=== PATIENT | male | born 1970 | race Caucasian/White ===

== ENCOUNTER 2024-08-19 13:22 | Inpatient (IN) | payer OTHER, SELFPAY ==
[2024-08-17] VITALS (8 sets, daily range): BP systolic 131–162; BP diastolic 73–96; BMI 36.4
[2024-08-17] MEDS: NSS 1000 IV (12:37)
[2024-08-17] MEDS: VALIUM INJECTION 5 MG IV (12:37)
[2024-08-17 12:53] LABS: % Basophils 0.3 % (0-2); % Eosinophils 0.1 % (0-6); % Lymphocytes 14.3 % (20.5-51.1); % Monocytes 3.8 % (1.7-9.3); % Neutrophils 80.5 % (42.2-75.2); Absolute Immature Granulocytes 0.1 10^3/uL (0-0.05); Absolute Lymphocytes 1.3 10^3/uL (1.2-3.4); Absolute Monocytes 0.3 10^3/uL (0.1-0.6); Absolute Neutrophils 7.2 10^3/uL (1.4-6.5); Hematocrit 36.7 % (39.0-52.0); Hemoglobin 12.7 g/dL (13.0-18.0); Mean Corp Hgb Conc. 34.6 g/dL (33.0-37.0); Mean Corpuscular Hgb 33.3 pg (27.0-31.0); Mean Corpuscular Volume 96.3 fL (80.0-94.0); Mean Platelet Volume 9.9 fL (7.4-10.4); Nucleated Red Blood Cells % 0 % (-); Platelet Count 277 10^3/uL (130-400); Red Blood Cell Count 3.81 10^6/uL (4.70-6.10); Red Cell Dist. Width 13.9 % (11.5-14.5)
[2024-08-17 13:05] LABS: ALT (SGPT) 32 U/L (0-50); AST (SGOT) 40 U/L (17-59); Albumin 4.4 g/dl (3.5-5.0); Alkaline Phosphatase 75 U/L (38-126); Blood Urea Nitrogen 26 mg/dl (9-20); Calcium 9.1 mg/dl (8.4-10.2); Carbon Dioxide 25 mmol/L (22-30); Chloride 107 mmol/L (98-107); Glucose 139 mg/dl (70-99); Sodium 139 mmol/L (135-145); Total Bilirubin 0.6 mg/dl (0.2-1.3); Total Protein 9.4 g/dl (6.3-8.2); eGFR > 60.00
--- NOTE | 2024-08-17 13:50 | ED.GENMED ---
History of Present Illness
General
Chief Complaint: Dizziness
Source: patient
Time Seen by Provider: 08/17/24 12:16
History of Present Illness
History of Present Illness:
53-year-old male presents the emergency room complaining of vertigo. 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 He was unable to ambulate due to the severity of the vertigo. He cannot feel that he has
significant nystagmus. Patient tried to lie down and relax and stay still without improvement of his symptoms. Patient has had short-lived episodes of vertigo in the past related to head movement. This seems much more severe than previous
episodes and was not provoked by any head movement. He denies any significant headache. He denies any focal weakness numbness or tingling in elsewhere in his body.
Past History
Past History
ED Past Medical History: HTN and Hypercholesterolemia
ED Past Surgical History: Tonsilectomy
Social History
Tobacco: Non-smoker
Alcohol: None
Personal:
Family History
Family History: Negative Early CAD
Phy Exam
Physical Exam
Physical Exam:
General: Awake, Alert, Oriented X3. No acute distress.
Vitals: unremarkable
Head: Atraumatic
Eyes: Pupils equal, EOMI, obvious significant leftward nystagmus
Throat: Airway intact, no exudates
Neck: Trachea midline
Lungs: Clear and equal b/l
Heart: Regular rate, no murmurs
Abd: Soft, Nontender, No pulsatile mass
Neuro: Cranial nerves intact, muscle strength equal bilaterally, cerebellar exam normal
Skin: Warm, dry, no rash
Extremities: pulses equal b/l, no edema
Course
Orders/Labs/Results
Orders:
Orders
08/17/24 Breakfast
Cholesterol Lowering
At Your Request: Full Participation
Does patient need a safe tray?: No
Cholesterol Lowering: Sodium, 2 Gram
08/17/24 12:22
CT Head W/o Iv Contrast Urgent
Comment:
Reason For Exam: vertigo
Cardiac Monitoring- Treatment ONCE
0.9% Sodium Chloride 1000 ml [Nss] 1,000 ml IV BOLUS
08/17/24 12:23
Electrocardiogram (*1) Stat
Reason for Study: Other
Other Reason for Exam: neuro symptoms
EKG- Treatment ONCE
08/17/24 12:24
diazePAM [Valium Injection] 5 mg IV NOW STA
08/17/24 12:39
Complete Blood Count/With Diff Urgent
Comprehensive Metabolic Panel Urgent
08/17/24 13:13
Level of Care Change As Directed
Level of Care: Inpatient admission
Reason for Hospitalization: Vestibular neuritis, inability to ambulate, requiring IV steroid
Expected length of stay greater than two midnights?: Yes
ELOS- Estimated Length of Stay in days: 3
I certify the patient meets the requirements for IP care: Yes
08/17/24 14:20
MethylPREDNISolone. [Solu-Medrol] 500 mg 0.9% Sodium Chloride 100 ml [Nss] 100 ml IV BID
08/17/24 14:26
Admit/Transfer Patient As Directed
Co-Sign Provider:
Level of Care: Observation services
Assign to:: Telemetry
Physician / Group: jluis
Diagnosis: vestibular neuritis
Reason for Telemetry: Other
Other Reason for Telemetry: dizzy
Date to Stop Telemetry: 08/19/24
Time to Stop Telemetry: 11:00
PRN Pain Medication Management As Directed
May give lesser potent ordered pain med per pt: Yes
preference::
Protocol:: Medication orders for pain may be administered in a
manner that supports deferring to patient preference
when the pt is:
- Requesting an ordered lesser potent pain medication.
Least to most potent pain medications are defined
as: acetaminophen < NSAID < tramadol < opioids
(morphine, oxycodone, hydromorphone).
- Requesting a lesser dose of the same medication IF
ORDERED.
- Requesting a less intrusive route of administration
if both routes are prescribed by the provider (PO <
IV).
08/17/24 14:27
Code Status As Directed
Resuscitation Status: Full Code
08/17/24 16:38
Ondansetron Injectable [Zofran] 4 mg IV Q6HPRN PRN
08/17/24 17:04
Meclizine [Antivert] 25 mg PO Q8HPRN PRN
08/17/24 18:25
Acetaminophen [Tylenol] 650 mg PO Q4HPRN PRN
Bisacodyl [Dulcolax] 10 mg RECTAL [id number] PRN
Docusate W/Senna [Senokot-S] 1 tablet PO BIDPRN PRN
Enoxaparin Sodium [Lovenox] 40 mg SC QPM
Polyethylene Glycol Powder [Miralax] 17 grams PO DAILYPRN PRN
diazePAM [Valium Injection] 2 mg IV Q6HPRN PRN
08/17/24 18:25
NEUROLOGY CONSULT Routine
Consulting Provider: Ritchie Al
Was physician already notified: Yes
Activity As Directed
Activity Level: As Tolerated
Orthostatic Vital Signs As Directed
Orthostatic VS Frequency: Daily
Vital Signs As Directed
Frequency: Per unit guidelines
DX Deep Vein Thrombosis Video Routine
08/17/24 18:36
Pt Screening Request from Melony Routine
08/17/24 19:00
Flush (0.9% Sodium Chloride) [Flush (Nss)] See Dose Instructions IV PER PROTOCOL
08/17/24 22:00
Hydrochlorothiazide [Oretic] 12.5 mg PO HS
Pravastatin Sodium [Pravachol] 20 mg PO HS
Valsartan [Diovan] 320 mg PO HS
08/18/24
DH LUMASON 5mL Routine
[facility] [place] [facility] [place] [facility] Routine
08/18/24 09:28
MRI Brain [MR Brain Without Contrast] Routine
Comment:
Reason For Exam: dizziness r/o cva
Recent pill cam endoscopy?: No
08/18/24 13:42
Carotid US [US Cerebrovascular] Routine
Comment:
Reason For Exam: eval for stenosis
08/18/24 15:05
Pt Eval And Treat Routine
Treatment: vesibular therapy
Activity Level: Out of Bed-Early Mobility
08/18/24 15:45
Echo 2D MMode Color/Doppler Routine
Reason for Study: dizziness
08/19/24
UC/Nsg Transfer Pt to Med/Surg As Directed
08/19/24 11:00
DC Protocol for Telemetry ONCE
Abnormal Lab Results
08/17/24
12:39
RBC 3.81 L 10^6/uL
(4.70-6.10)
Hgb 12.7 L g/dL
(13.0-18.0)
Hct 36.7 L %
(39.0-52.0)
MCV 96.3 H fL
(80.0-94.0)
MCH 33.3 H pg
(27.0-31.0)
Abs Immat Gran (auto) 0.1 H 10^3/uL
(0-0.05)
Absolute Neuts (auto) 7.2 H 10^3/uL
(1.4-6.5)
Immature Gran % 1.0 H %
(0-0.5)
Neutrophils % 80.5 H %
(42.2-75.2)
Lymphocytes % 14.3 L %
(20.5-51.1)
BUN 26 H mg/dl
(9-20)
Glucose 139 H mg/dl
(70-99)
Total Protein 9.4 H g/dl
(6.3-8.2)
08/17/24 12:39
08/17/24 12:39
Vital Signs
Initial and Last Documented VS:
Initial Vital Signs
Temp Pulse Resp BP Pulse Ox
97.7 F 54 16 162/96 100
08/17/24 10:56 08/17/24 10:56 08/17/24 10:56 08/17/24 10:56 08/17/24 10:56
Last Documented Vital Signs
Temp Pulse Resp BP Pulse Ox
98.6 F 58 21 158/88 98
08/19/24 12:19 08/19/24 12:19 08/19/24 12:19 08/19/24 12:19 08/19/24 12:19
MDM/Problems Addressed
Differential Diagnosis Includes:
Labyrinthitis, benign positional vertigo, CVA
MDM/Problems Addressed:
Patient presents with sudden onset of severe vertigo. Vertigo is debilitating. Patient treated with meclizine prior to arrival without any improvement. Patient given IV fluids, antiemetics and Valium here with mild improvement but still patient
debilitated. Neurology consultation obtained. Overall exam suggestive of vestibular neuritis. Patient will require hospitalization as he is unable to even get out of bed.
*Radiology
Radiology exam reviewed: radiology read reviewed
*Pulse Oximetry
Patient hypoxic: no
*EKG
Interpreted by ED Provider?: Yes
Heart Rate: 55
Rate: bradycardiac
Rhythm: sinus
[place]: normal axis
Interval: normal interval
QRS Pattern: normal QRS
Ischemia: no ischemia
*Golf Superintendent Interpretation
Rate: bradycardiac
Interpretation: abnormal
Rhythm: sinus
*Critical Care Note
Total Time (30-74mins, 75-104mins- exclusive of procedures): Not Applicable
ED Attending Note
-
Portions of this chart may have been created with voice recognition software.� Occasional wrong word or��sound alike� substitutions may have occurred due to the inherent limitations of voice recognition software.
Discharge Plan
Departure
Patient Disposition: Admit
Date of Disposition: 08/17/24
Time of Disposition: 14:06
Presentation/result/management discussed w/ accepting MD/DO: Hospitalist
Condition: Fair
Discharge Problem:
Vertigo
Interventions
Interventions:
*Risk Screen - Suicide Last Done: 08/17/24 10:57
*General Assessment Last Done: 08/17/24 14:00
*Neglect/Abuse Screening Last Done: 08/17/24 10:57
*Nursing Disposition Last Done: 08/17/24 18:14
ED- Neurological Assessment Last Done: 08/17/24 14:00
Discharge Date and Time
Discharge Date/Time: 08/17/24 18:16
--- NOTE | 2024-08-17 14:07 | HPS.HSE ---
Family Physician
-
Family Physician: Rivera Allison
Chief Complaint
-
vertigo
History of Present Illness
53-year-old male with PMH for obesity, HTN presented to us with vertigo. presents the emergency room complaining of vertigo. 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
He was unable to ambulate due to the severity of the vertigo. Patient tried to lie down and relax and stay still without improvement of his symptoms.he took Zofran and meclizine at work with no relief in his symptoms. he was vomiting until he got
here. denied RAY, fever, chills, congestion, cough. denied chest pain, sob. denied abdominal pain. stated chronic diarrhea from irritable bowel. denied dysuria or hematuria.
Head CT with no acute finding. Patient was stated volume, Solu-Medrol, normal saline in ER. Admitted for further management
Medical History
Past Medical History
Past Medical History: Reports Other
Additional Past Medical History:
Hypertension, hyperlipidemia
Past Surgical History: Reports Other
Additional Past Surgical History:
Tonsillectomy
wisdom tooth
Social History
Tobacco: Non-smoker
Alcohol: Occasional
Drug: None
Personal:
Living: With Family
Employment: Employed
Family History
Family History: Not pertinent
Allergies / Home Medications
Allergies reflects when Allergies were last updated in [employer].
Home Medications with original date entered in [employer]
Allergy/Medication List:
Allergies
Allergy/AdvReac Type Severity Reaction Status Date / Time
atorvastatin Allergy Unknown Verified 02/04/14 00:31
Home Medications
pravastatin 20 mg tablet 20 mg PO HS 08/17/24
valsartan 320 mg-hydrochlorothiazide 12.5 mg tablet 1 tab PO HS 08/17/24
Review of Systems
-
Constitutional: Reports No Symptoms
EENT: Reports No Symptoms
Respiratory: Reports No Symptoms
Cardiac: Reports No Symptoms
Abdomen/GI: Reports No Symptoms
: Reports No Symptoms
Musculoskeletal: Reports No Symptoms
Skin: Reports No Symptoms
Neurological: Reports Dizzy
Endocrine: Reports No Symptoms
Hematologic/Lymphatic: Reports No Symptoms
Psych: Reports No Symptoms
Physical Exam
Vital Signs
Vital Signs
Temp Pulse Resp BP Pulse Ox
97.7 F 54 16 162/96 100
08/17/24 10:56 08/17/24 10:56 08/17/24 10:56 08/17/24 10:56 08/17/24 10:56
Physical Exam
General: Well Developed, Well Nourished and No Apparent Distress
HEENT: NormoCephalic, Moist mucous membranes and Atraumatic
Respiratory: Clear
Cardiac: S1/S2 and Regular Rhythm; No Murmur or Rub
GI: Soft, Non Tender, Non Distended and Normal Bowel Sounds; No Organomegaly
Rectal: Deferred by Provider
Musculoskeletal: No Clubbing, No Cyanosis and No Edema
Skin: No Rash
Neuro: AO x 3 and Nonfocal/grossly intact
Psych: Calm
Laboratory Results
-
08/17/24 12:39
08/17/24 12:39
Laboratory Results
Total Bilirubin 0.6 mg/dl (0.2-1.3) 08/17/24 12:39
AST 40 U/L (17-59) 08/17/24 12:39
ALT 32 U/L (0-50) 08/17/24 12:39
Alkaline Phosphatase 75 U/L (38-126) 08/17/24 12:39
Data Reviewed
-
CT Scan: Report Reviewed by me
Lab Data: Labs Reviewed by me
Impression/Plan
-
#severe vertigo associated with nausea vomiting concern for vestibular neuritis
- Some relief with meclizine
- Head CT with no acute intracranial abnormality
- EKG was sinus bradycardia
- Solu-Medrol continue as per neurology
- Meclizine as needed
-Neurology following
# Essential hypertension/hyperlipidemia
- Blood pressure stable in ER
- pravastatin, valsartan-hctz continued
# DVT prophylaxis
- Lovenox
# CODE STATUS
- Full code
--- NOTE | 2024-08-17 14:22 | CON.NEURO ---
Neuro Assessment/Plan
Assessment
acute vestibular neuritis right ear the vestibular nerve triggers the VOR which pulls the eyes towards the affected side, and nystagmus to the left represents the cortical correction. this is independent of gaze direction
as his symptoms are severe, we will try solumedrol 500 q12 and he will be admitted due to symptoms severity, unable to ambulate
Consultation
Order
Date of Consultation: 08/17/24
Requesting Provider: Hossein Montgomery
Reason for Consult: Vertigo
Subjective/Objective
Subjective Data
Date of Service: August 17, 2024
from ED notes:
53-year-old male presents the emergency room complaining of vertigo. 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 He was unable to ambulate due to the severity of the vertigo. He cannot feel that he has
significant nystagmus. Patient tried to lie down and relax and stay still without improvement of his symptoms. Patient has had short-lived episodes of vertigo in the past related to head movement. This seems much more severe than previous
episodes and was not provoked by any head movement. He denies any significant headache. He denies any focal weakness numbness or tingling in elsewhere in his body.
no relief with meclizine 50. vomited up the pills. Valium 5 relieved the nausea but still very vertiginous
Objective Data
Vital Signs
Temp Pulse Resp BP Pulse Ox
36.5 C 54 16 162/96 100
08/17/24 10:56 08/17/24 10:56 08/17/24 10:56 08/17/24 10:56 08/17/24 10:56
Lab Results
08/17/24 12:39
08/17/24 12:39
Sodium 139 mmol/L (135-145) 08/17/24 12:39
Potassium 4.0 mmol/L (3.5-5.1) 08/17/24 12:39
BUN 26 mg/dl (9-20) H 08/17/24 12:39
Glucose 139 mg/dl (70-99) H 08/17/24 12:39
Calcium 9.1 mg/dl (8.4-10.2) 08/17/24 12:39
Patient Allergies
atorvastatin Allergy (Verified 02/04/14 00:31)
Unknown
Physical Exam
-
constant left beating nystagmus regardless of gaze direction
Medications
-
Active Medications
Generic Name Dose Route Start Last Admin
Trade Name Freq PRN Reason Stop Dose Admin
Methylprednisolone Sodium 108 mls @ 108 mls/hr 08/17/24 14:20
Succinate 500 mg/ Sodium IV 09/14/24 14:19
Chloride BID KEE
Home Medications
�Medication �Instructions �Recorded
pravastatin 20 mg tablet 20 mg PO HS 08/17/24
valsartan 320 1 tab PO HS 08/17/24
mg-hydrochlorothiazide 12.5 mg
tablet
--- NOTE | 2024-08-17 14:42 | W.PN.UPDATE ---
Update Note
Progress Note Update
This is an addendum to H&P written by BACTERIOLOGY RESEARCH ASSISTANT Poly Coughlin
I saw and examined the patient.
The BACTERIOLOGY RESEARCH ASSISTANT's note was reviewed and I agree with the note.
Comment:
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
Triage VS: T 97.7, P 54, RR 16, BP 162/96, SpO2 100%
On exam patient is able to open eyes without significant distress, appears mildly nauseated. Exam with left beating nystagmus.
LABS: WBC 9, Hg 12.7, PLT 277, Na 139, K+ 4.0, BUN 26, Cr 0.7, Glucose 139, liver enzymes WNL
HEAD CT
IMPRESSION:
No acute intracranial abnormality noted.
MAR: 1L Bolus, Valium 5mg, Solumedrol 500mg IV
Acute Vestibular Neuritis
-admit to med/surg
-appreciate Neurology eval
-continue IV solumedrol 500mg q 12
-meclizine PRN and Valium PRN
Essential HTN
-JET HANDLER Valsartan HCTZ
HLD
-JET HANDLER Statin
DVT PPx
FULL CODE
[2024-08-17] MEDS: SOLU-MEDROL 108 MG IV ×2 (14:50→22:00)
--- NOTE | 2024-08-17 16:09 | CM ---
Cm reviewed chart and met with pt and bedside in ED. Obs form reviewed and signed, copy given to pt. Pt lives with his in multistory home, [address], bath on first floor. No DME, No history of VN or SNF.
PCP: Rivera Allison
Pharmacy: [facility]
Plan: DC home pending ongoing medical evaluation
[2024-08-17] MEDS: ZOFRAN 4 MG IV (16:53)
[2024-08-17] MEDS: ANTIVERT 25 MG PO (17:47)
[2024-08-17] MEDS: LOVENOX 40 MG SC (21:08)
[2024-08-17] MEDS: PRAVACHOL 20 MG PO (22:01)
[2024-08-17] MEDS: DIOVAN 320 MG PO (22:01)
[2024-08-17] MEDS: ORETIC PO (22:24)
[2024-08-18] MEDS: ANTIVERT 25 MG PO ×3 (02:55→21:43)
[2024-08-18 03:00] VITALS: BP 131/72
[2024-08-18 07:00] VITALS: BP 153/81
[2024-08-18] MEDS: SOLU-MEDROL 108 MG IV ×2 (07:41→20:01)
[2024-08-18] MEDS: TYLENOL 650 MG PO (09:08)
[2024-08-18 10:58] VITALS: BP 117/70
[2024-08-18] MEDS: VALIUM INJECTION 2 MG IV (11:43)
[2024-08-18 15:00] VITALS: BP 153/78
--- NOTE | 2024-08-18 16:12 | W.PN.HOSP.TC ---
Today's Communication/Plan
-
Assessment / Plan
Assessment / Plan
NAD
Scleral Anicteric
MMM
No JVD
CTABL
RRR, S1/S2
Soft, NT, ND, BS+
Warm, Dry
AAOx3
Calm
Vestibular neuritis started on steroids
MRI without acute findings
MRA without acute finding/stenoses
Carotid ultrasound without evidence of hemodynamic stenosis however there is hyperdynamic blood flow. Which could be cardiac related
Therefore recommend 2D echocardiogram this can be completed as an inpatient or outpatient.
Continue steroids and transition to oral steroids on discharge
Hypertension
Continue antihypertensives
Slightly hypertensive however alcohol level as on IV steroids and likely augmenting blood pressure
Hyperlipidemia
Continue pravastatin
Anticipated Discharge: 24 - 48 hours
Subjective/Interval History
-
Date of Service: August 18, 2024
seen and examined. no new complaints. no acute overnight events
feeling better however still unable to ambulate safely, feels unsteady when walking with two persons
Objective Data
-
Vital Signs:
Vital Signs
Temp Pulse Resp BP Pulse Ox
98.4 F 78 18 153/78 95
08/18/24 15:00 08/18/24 15:00 08/18/24 15:00 08/18/24 15:00 08/18/24 15:00
I&O
08/17/24 08/18/24 08/19/24
06:59 06:59 06:59
Intake Total 480 / 480
Output Total 1949
Balance -1470 / -1470
[2024-08-18 16:15] VITALS: BP 153/78; PULSE 78
[2024-08-18] MEDS: LOVENOX 40 MG SC (17:31)
[2024-08-18] MEDS: ORETIC 12.5 MG PO (21:22)
[2024-08-18] MEDS: PRAVACHOL 20 MG PO (21:22)
[2024-08-18] MEDS: DIOVAN 320 MG PO (21:22)
[2024-08-18 23:00] VITALS: BP 145/96
[2024-08-19 03:00] VITALS: BP 131/68
[2024-08-19 08:14] VITALS: BP 138/83
[2024-08-19] MEDS: SOLU-MEDROL 108 MG IV (08:34)
[2024-08-19] MEDS: ANTIVERT 25 MG PO (08:42)
--- NOTE | 2024-08-19 11:56 | W.PN.NEURO.1 ---
Today's Communication / Plan
-
hopeful for discharge
Neuro Assessment/Plan
Assessment
MRI brain normal
MRA head normal
carotid u/s increased left common and proximal ICA velocity, without atherosclerosis - could be attributed to hyperdynamic cardiac status.
discussed with pt study results
acute vestibular neuritis right ear. the vestibular nerve triggers the VOR which pulls the eyes towards the affected side, which is a gain of function and not consistent with stroke. nystagmus to the left represents the cortical correction, the
brain acting appropriately. this is independent of gaze direction
as his symptoms are severe, continue solumedrol 500 q12, and on discharge potentially complete 5 days of steroids with prednisone 50 if not symptomatically resolved
Subjective/Objective
Subjective Data
Date of Service: August 19, 2024
vertigo improving. planning to attempt increasing activity and hopeful to go home later today or tomorrow based on symptom severity.
his family and partners are reassured that the studies show that this nothing more serious given his severe symptoms
Objective Data
Vital Signs
Temp Pulse Resp BP Pulse Ox
36.8 C 59 21 138/83 94
08/19/24 08:14 08/19/24 08:14 08/19/24 08:14 08/19/24 08:14 08/19/24 08:14
Lab Results
08/17/24 12:39
08/17/24 12:39
Sodium 139 mmol/L (135-145) 08/17/24 12:39
Potassium 4.0 mmol/L (3.5-5.1) 08/17/24 12:39
BUN 26 mg/dl (9-20) H 08/17/24 12:39
Glucose 139 mg/dl (70-99) H 08/17/24 12:39
Calcium 9.1 mg/dl (8.4-10.2) 08/17/24 12:39
Patient Allergies
atorvastatin Allergy (Verified 08/17/24 17:06)
achiness
Physical Exam
-
constant left beating nystagmus regardless of gaze direction
[2024-08-19 12:19] VITALS: BP 158/88
--- NOTE | 2024-08-19 13:16 | W.PN.HOSP.TC ---
Today's Communication/Plan
-
Assessment / Plan
Assessment / Plan
NAD
Scleral Anicteric
MMM
No JVD
CTABL
RRR, S1/S2
Soft, NT, ND, BS+
Warm, Dry
AAOx3
Calm
Vestibular neuritis started on steroids
MRI without acute findings
MRA without acute finding/stenoses
Carotid ultrasound without evidence of hemodynamic stenosis however there is hyperdynamic blood flow. Which could be cardiac related
2D echocardiogram mild to moderate mitral regurgitation, EF 60 to 65% no regional wall motion abnormality
Continue steroids and transition to oral steroids on discharge
Hypertension
Continue antihypertensives
Slightly hypertensive however alcohol level as on IV steroids and likely augmenting blood pressure
Hyperlipidemia
Continue pravastatin
Anticipated Discharge: 24 - 48 hours
Subjective/Interval History
-
Date of Service: August 19, 2024
Seen and examined. No new complaints. No acute overnight events.
Continues to have intermittent dizziness worse when waking. Still feels unsteady on his feet. Concerned of falling.
Objective Data
-
Vital Signs:
Vital Signs
Temp Pulse Resp BP Pulse Ox
98.6 F 58 21 158/88 98
08/19/24 12:19 08/19/24 12:19 08/19/24 12:19 08/19/24 12:19 08/19/24 12:19
I&O
08/18/24 08/19/24 08/20/24
06:59 06:59 06:59
Intake Total 480 / 480 480 / 480
Output Total 1950 / 1950 800 / 800
Balance -1470 / -1470 -320 / -320
[2024-08-19 13:40] VITALS: BP 129/69; PULSE 70; O2SAT 96
[2024-08-19 14:26] VITALS: BP 129/69; PULSE 70; O2SAT 96
--- NOTE | 2024-08-19 15:46 | W.DCSUMMARY ---
Discharge Summary
Discharge Data
Date of Admission: 08/19/24
Date of Discharge: 08/19/24
-
Pending Results: No
Hospital Course
53-year-old male with PMH for obesity, HTN
Presented with vertigo. Seen by neuro in the ED. Hints test + for vestibular neuritis. Started on IV steroids and evaled by PT for vestibular rehab. Will dc home with steroids and rolling walker. Will need to follow up with PCP and continue
vestibular rehab on discharge.
Imaging studies as below
CTHead
IMPRESSION:
No acute intracranial abnormality noted.
Brain MRA
IMPRESSION:
No hemodynamically significant stenosis, branch occlusion, or aneurysm.
Brain MRI
IMPRESSION:
No acute intracranial abnormality noted. No acute infarct. Few scattered white matter foci of increased signal intensity on T2 and FLAIR. Nonspecific. Such findings usually do not correlate clinically. Possible considerations include demyelination,
gliosis, chronic microvascular white matter ischemic disease, vasculitis, migraine headaches, or other inflammatory or infectious etiology, such as Lyme disease in the proper clinical setting.
Carotid ultrasound
IMPRESSION:
Right carotid: Unremarkable appearance. No atherosclerotic plaques or significant luminal narrowing.
Left carotid: Nonspecific elevated velocities within the common and proximal internal carotid arteries without significant atherosclerotic disease or luminal narrowing appreciated on grayscale images. Velocities within the proximal ICA measure 213
cm/s. This finding could be attributed to hyperdynamic cardiac status.
Antegrade flow within the vertebral bodies.
2d echo
CONCLUSIONS
Left ventricular ejection fraction is 60-65%, by visual assessment. Normal
regional wall motion.
Normal right ventricular size and function.
Mild to moderate, eccentric mitral regurgitation.
Compared to previous echo on 09/26/2021, slightly progressive mitral
regurgitation is noted.
Discharge Plan
-
Patient Disposition: Home (Routine Discharge)
Discharge Diagnosis/Procedures: vestibular neuritis
Condition: Good
Diet: As tolerated
Activity: As tolerated
Activity Restrictions/Additional Instructions:
Presented with vertigo. Seen by neuro in the ED. Hints test + for vestibular neuritis. Started on IV steroids and evaled by PT for vestibular rehab. Will dc home with steroids and rolling walker. Will need to follow up with PCP and continue
vestibular rehab on discharge.
Imaging studies as below
CTHead
IMPRESSION:
No acute intracranial abnormality noted.
Brain MRA
IMPRESSION:
No hemodynamically significant stenosis, branch occlusion, or aneurysm.
Brain MRI
IMPRESSION:
No acute intracranial abnormality noted. No acute infarct. Few scattered white matter foci of increased signal intensity on T2 and FLAIR. Nonspecific. Such findings usually do not correlate clinically. Possible considerations include demyelination,
gliosis, chronic microvascular white matter ischemic disease, vasculitis, migraine headaches, or other inflammatory or infectious etiology, such as Lyme disease in the proper clinical setting.
Carotid ultrasound
IMPRESSION:
Right carotid: Unremarkable appearance. No atherosclerotic plaques or significant luminal narrowing.
Left carotid: Nonspecific elevated velocities within the common and proximal internal carotid arteries without significant atherosclerotic disease or luminal narrowing appreciated on grayscale images. Velocities within the proximal ICA measure 213
cm/s. This finding could be attributed to hyperdynamic cardiac status.
Antegrade flow within the vertebral bodies.
2d echo
CONCLUSIONS
Left ventricular ejection fraction is 60-65%, by visual assessment. Normal
regional wall motion.
Normal right ventricular size and function.
Mild to moderate, eccentric mitral regurgitation.
Compared to previous echo on 09/26/2021, slightly progressive mitral
regurgitation is noted.
Referrals:
Rivera Allison MD [Family Provider, [facility]]
Prescriptions:
New
meclizine 25 mg Tablet
25 mg PO Q8HPRN PRN (Reason: vertigo) Qty: 30 0RF
prednisone 50 mg tablet
50 mg PO DAILY 5 Days Qty: 5 0RF
Continued
pravastatin 20 mg Tablet
20 mg PO HS
valsartan-hydrochlorothiazide 320-12.5 mg Tablet
1 tab PO HS
Discharge Orders:
Discharge Patient (As Directed); Ordered 08/19/24
Ordered By: Asa Mejía
Discharge Date and Time
Print Language: OMANI
== END 2024-08-19 17:29 | disposition home or self-care (01) | DRG 156 ==
LOC: 3 WEST ACU 13:22
PROVIDERS: ADMITTING PHYSICIAN Student in an Organized Health Care Education/Training Program; ATTENDING PHYSICIAN Hospitalist; CONSULT PHYSICIAN Psychiatry & Neurology Clinical Neurophysiology; EMERGENCY PHYSICIAN Emergency Medicine; FAMILY PHYSICIAN Family Medicine
DX: H93.3X9 Disorders of unspecified acoustic nerve (principal); I10 Essential (primary) hypertension; E66.9 Obesity, unspecified; Z68.36 Body mass index [BMI] 36.0-36.9, adult; I34.0 Nonrheumatic mitral (valve) insufficiency; Z88.8 Allergy status to other drugs, medicaments and biological substances; E78.00 Pure hypercholesterolemia, unspecified; H55.00 Unspecified nystagmus
CPT/HCPCS: 70450; 70544; 70551; 80053; 85025; 93005; 93306; 93880; 96361; 96374; 97116; 97163; 99285; Q9950

== ENCOUNTER → 2024-12-11 13:06 | Outpatient (REF) | payer OTHER, SELFPAY | LOC: HWRAD 13:06 | PROVIDERS: ATTENDING PHYSICIAN Internal Medicine Cardiovascular Disease; FAMILY PHYSICIAN Family Medicine | DX: R06.02 Shortness of breath (principal); E78.00 Pure hypercholesterolemia, unspecified; I25.84 Coronary atherosclerosis due to calcified coronary lesion; R94.31 Abnormal electrocardiogram [ECG] [EKG]; I34.0 Nonrheumatic mitral (valve) insufficiency | CPT/HCPCS: 71046 ==

== ENCOUNTER → 2024-12-13 09:03 | Outpatient (REF) | payer OTHER, SELFPAY | LOC: RCS 09:03 | PROVIDERS: ATTENDING PHYSICIAN Internal Medicine Cardiovascular Disease; FAMILY PHYSICIAN Family Medicine | DX: I10 Essential (primary) hypertension (principal); R06.02 Shortness of breath; E78.00 Pure hypercholesterolemia, unspecified; I25.84 Coronary atherosclerosis due to calcified coronary lesion; R94.31 Abnormal electrocardiogram [ECG] [EKG]; I34.0 Nonrheumatic mitral (valve) insufficiency | CPT/HCPCS: 78452; 93017; 93306; A9500; J2785; Q9950 ==

== ENCOUNTER 2024-12-18 17:42 | Inpatient (IN) | payer OTHER, SELFPAY ==
[2024-12-18 15:09] VITALS: BP 140/96
[2024-12-18 15:24] LABS: Hematocrit 34.3 % (39.0-52.0); Hemoglobin 11.9 g/dL (13.0-18.0); Mean Corp Hgb Conc. 34.7 g/dL (33.0-37.0); Mean Corpuscular Volume 94.0 fL (80.0-94.0); Nucleated Red Blood Cells % 0 % (-); Platelet Count 285 10^3/uL (130-400); Red Cell Dist. Width 14.3 % (11.5-14.5)
[2024-12-18 15:47] LABS: Troponin I 0.025 ng/ml
[2024-12-18 15:53] LABS: Blood Urea Nitrogen 17 mg/dl (9-20); Calcium 8.9 mg/dl (8.4-10.2); Carbon Dioxide 22 mmol/L (22-30); Chloride 106 mmol/L (98-107); Glucose 92 mg/dl (70-99); Sodium 136 mmol/L (135-145); eGFR > 60.00
[2024-12-18 16:09] LABS: APTT 22.9 Sec (23.4-35.0)
--- NOTE | 2024-12-18 16:46 | ED.GENMED ---
History of Present Illness
General
Chief Complaint: Breathing Problem
Source: patient
Exam Limitations: none
Time Seen by Provider: 12/18/24 16:32
Nursing documentation reviewed up to this point in time: agreed with
History of Present Illness
History of Present Illness:
Note:
CHIEF COMPLAINT(S)
Shortness of breath on exertion.
HISTORY OF PRESENT ILLNESS
The patient is a 54-year-old male presenting with complaints of shortness of breath upon exertion, which has been progressively worsening over the past two weeks. The patient initially experienced minimal exertional dyspnea, but it has since
deteriorated despite a period of rest. He underwent an outpatient CT scan of the chest today, which showed extensive bilateral pulmonary emboli but no evidence of right heart strain. The patients history includes an evaluation with echocardiogram
and nuclear stress test last week, both returning normal results. He denies any recent pain in the legs. The patient suspects his condition may be travel-related, mentioning a recent flight to [place]. The patient reports taking aspirin but
acknowledges it may not have prevented the current episode. He does not have a history of previous surgeries.
The patient has been advised to be admitted for monitoring and anticoagulation therapy with heparin, transitioning to oral anticoagulants. The anticipated hospital stay is approximately one to two days to ensure stability and proper response to
treatment.
CHRONIC MEDICAL CONDITIONS SIGNIFICANTLY AFFECTING CARE
The patient has a history of hypertension, managed with medications, though he admits to fluctuations in his weight, which have affected his hypertension control in the past.
MEDICATIONS
He reports using aspirin regularly and is familiar with the use of anticoagulants like apixaban (Eliquis) for current treatment needs.
PHYSICAL EXAM
General: Alert, no acute distress.
Skin: Warm, dry.
Head: Normocephalic, atraumatic.
Neck: Supple, trachea midline.
Eye Ears, Nose, Mouth, and Throat: Oral mucosa moist.
Cardiovascular: Normal peripheral perfusion, No edema. S1/S2, no S3/4
Respiratory: Respirations are non-labored. lungs clear bilaterally
Gastrointestinal: Abdomen nondistended.
Back: Normal range of motion, Normal alignment.
Musculoskeletal: Normal range of motion, normal strength.
Neurological: Alert and oriented to person, place, time, and situation. No focal neurological deficit observed.
Psychiatric: Cooperative, appropriate mood and affect.
PROBLEM LIST
Acute Problems:
- Extensive bilateral pulmonary embolic disease.
- Shortness of breath on exertion.
Chronic Problems:
- Hypertension.
PLAN
- Admit for observation and initiation of anticoagulation therapy with heparin, transitioning to oral anticoagulants such as apixaban.
- Monitor for complications related to pulmonary embolism.
- Evaluate and adjust hypertension treatment as needed, considering weight fluctuations.
DIFFERENTIAL DIAGNOSIS
The Differential Diagnosis includes, in no particular order and is not limited to:
- Pulmonary embolism.
- Chronic obstructive pulmonary disease (COPD).
- Heart failure.
- Pulmonary hypertension.
- Interstitial lung disease.
- Acute coronary syndrome.
- Pneumonia.
- Asthma.
- Pulmonary edema.
- Anxiety-related dyspnea.
EKG
My independent EKG interpretation is:
- Time of EKG: Not specified
- Rhythm: Sinus
- Heart Rate: Not specified
- [place] Interval: Normal
- QRS Duration: Normal
- QT Interval: Normal
- [place]: Normal
- Abnormalities: None observed
Disposition:
SUMMARY OF ENCOUNTER
The patient is a 54-year-old male presenting with bilateral pulmonary emboli, as confirmed by a CT scan of the chest performed earlier today, which showed no signs of right heart strain. The patient is experiencing shortness of breath, particularly
on exertion, and this symptom has been progressively worsening over the past two weeks. His vital signs are stable upon examination. He has no history of recent surgery or head trauma that would contraindicate the use of heparin. Due to the presence
of extensive bilateral pulmonary emboli, initiation of anticoagulation therapy with intravenous heparin was ordered. The patient was seen in the emergency department and is advised for admission to the hospital under the care of a hospitalist for
further monitoring and management.
DISPOSITION
Admit to hospitalist care for IMU (Intermediate Medical Unit) level of care.
ASSESSMENT
Acute bilateral pulmonary embolism without evidence of right heart strain.
PLAN
- Admit to the hospital for monitoring and continuation of anticoagulation therapy with intravenous heparin.
- Initiate peripheral ultrasounds to rule out deep vein thrombosis.
- Transition to oral anticoagulants, such as apixaban, under supervision.
INDEPENDENT REVIEW OF LABS AND INTERPRETATION OF TESTS
- My independent review of CT scan indicates extensive bilateral pulmonary emboli without signs of right heart strain.
MEDICATION RECONCILIATION
- Intravenous heparin initiated for anticoagulation therapy.
MEDICAL DECISION MAKING
- Number and Complexity of Problems Addressed: Chronic conditions affecting care [hypertension]
Ddx list includes: Pulmonary embolism, Chronic obstructive pulmonary disease (COPD), Heart failure, Pulmonary hypertension, Interstitial lung disease, Acute coronary syndrome, Pneumonia, Asthma, Pulmonary edema, Anxiety-related dyspnea.
- Data:
Category 1
My independent interpretation of CT scan: Extensive bilateral pulmonary emboli without signs of right heart strain.
- Risk:
Prescription medication was prescribed: Heparin was administered for anticoagulation therapy.
DIAGNOSIS
- Pulmonary embolism, bilateral (ICD-10: I26.99)
Past History
Past History
ED Past Medical History: HTN and Hypercholesterolemia
ED Past Surgical History: Tonsilectomy
Social History
Tobacco: Non-smoker
Alcohol: None
Personal:
Family History
Family History: Negative Early CAD
Phy Exam
Physical Exam
Physical Exam:
.
Scores
Heart Failure Risk
Heart Failure Risk Score: Not Applicable
Course
Orders/Labs/Results
Orders:
Orders
12/18/24 15:12
ECG [Electrocardiogram (*1)] Urgent
Reason for Study: Shortness of Breath
EKG- Treatment ONCE
12/18/24 15:15
BNP [NT-proBNP] Urgent
Basic Metabolic Panel Urgent
Complete Blood Count/With Diff Urgent
PTT Urgent
Troponin I Urgent
12/18/24 16:54
Heparin 10,000 units IV NOW STA
Pharmacy Request to Place See Dose Instructions PO NOW STA
Discontinue all Active Warfarin orders?: Yes
Nursing to Place Non Medication Order As Directed
Physician Order: PTT 6 hours after initial start of Heparin infusion
US Legs, Bilateral [US Periph Venous LOWER Ext Cyrus] Urgent
Comment:
Reason For Exam: bilateral PE, recent travel
12/18/24 17:00
Heparin 04162 Units/250 ml 25,000 units in 250 ml IV PER PROTOCOL
Weight to be used for heparin protocol in kilograms (kg):: 131.7
Protocol:: DVT/PE
PTT Goal Range to be used:: PTT 73 to 111 seconds
Order type:: Initial
INITIAL Infusion Dose (UNITS/KG/hr) & then follow protocol:: 18 units/kg/hr
Infusion Dose in UNITS/hr & then follow protocol (UNITS/hr):: 2,000
INFUSION RATE in mL/hr & then follow protocol (mL/hr):: 20
For DVT/PE algorithm, re-bolus for low PTT?: Yes
PTT less than or equal to 64 seconds:: Re-bolus 80 units/kg (max 10,000units). Increase by 500 units/hr
(+ 5mL/hr)
PTT 64.1 to 72.9 seconds:: Re-bolus 40 units/kg (max 5,000 units). Increase by 300 units/hr
(+ 3mL/hr)
PTT 73 to 111 seconds:: Target Range. No change in rate.
PTT 111.1 to 130.9 seconds:: Decrease rate by 300 units/hr (- 3 mL/hr)
PTT 131 to 199.9 seconds:: HOLD for 1 hr. Then decrease by 400 units/hr (- 4mL/hr)
PTT greater than or equal to 200 seconds:: HOLD for 2 hrs & Notify Provider. Then decrease by 500 units/hr
(- 5mL/hr)
Lab follow-up:: Each change, PTT q6h until 2 consecutive are therapeutic. Then
PTT daily.
Pharmacy Request to Place See Dose Instructions IV DIRECTED
12/18/24 17:03
Add On- LAB Urgent
Tests Added?: PT/INR
Abnormal Lab Results
12/18/24
15:15
RBC 3.65 L 10^6/uL
(4.70-6.10)
Hgb 11.9 L g/dL
(13.0-18.0)
Hct 34.3 L %
(39.0-52.0)
MCH 32.6 H pg
(27.0-31.0)
Abs Immat Gran (auto) 0.1 H 10^3/uL
(0-0.05)
Immature Gran % 0.7 H %
(0-0.5)
APTT 22.9 L Sec
(23.4-35.0)
12/18/24 15:15
12/18/24 15:15
Vital Signs
Initial and Last Documented VS:
Initial Vital Signs
Temp Pulse Resp BP Pulse Ox
98.4 F 73 20 140/96 94
12/18/24 15:09 12/18/24 15:09 12/18/24 15:09 12/18/24 15:09 12/18/24 15:09
Last Documented Vital Signs
Temp Pulse Resp BP Pulse Ox
98.4 F 63 18 133/80 93
12/18/24 15:09 12/18/24 16:47 12/18/24 16:47 12/18/24 16:47 12/18/24 16:49
*Pulse Oximetry
SaO2: 94
Oxygen Mode of Delivery: Room air
Patient hypoxic: no
*Critical Care Note
Total Time (30-74mins, 75-104mins- exclusive of procedures): 32
comment:
Critical care statement: A total of 32 minutes of critical care time was provided for this patient. This includes management of unstable vital signs, evaluation of the patient at bedside, reviewing the patient's pertinent medical records, discussion
with consultants, review of old EKGs and review of pertinent medical records. This time with separate from time utilized to perform the aforementioned documented procedures
ED Attending Note
-
Portions of this chart may have been created with voice recognition software.� Occasional wrong word or��sound alike� substitutions may have occurred due to the inherent limitations of voice recognition software.
Discharge Plan
Departure
Patient Disposition: Admit
Date of Disposition: 12/18/24
Time of Disposition: 16:57
Admit to: IMU
Presentation/result/management discussed w/ accepting MD/DO: Hospitalist
Patient with high blood pressure during this ER visit?: Yes
Condition: Fair
Discharge Problem:
Bilateral pulmonary embolism
Prescriptions:
No Action
pravastatin 20 mg Tablet
20 mg PO HS
valsartan-hydrochlorothiazide 320-12.5 mg Tablet
1 tab PO HS
meclizine 25 mg Tablet
25 mg PO Q8HPRN PRN (Reason: vertigo) Qty: 30 0RF
prednisone 50 mg tablet
50 mg PO DAILY 5 Days Qty: 5 0RF
Interventions
Interventions:
*Risk Screen - Suicide Last Done: 12/18/24 16:49
*General Assessment Last Done: 12/18/24 15:09
*Neglect/Abuse Screening Last Done: 12/18/24 16:49
*ED- Fall Risk Assessment Last Done: 12/18/24 16:49
*ED COVID-19 Vaccine History Last Done: 12/18/24 16:49
*ED Influenza Vaccine History Last Done: 12/18/24 16:49
ED- Cardiac Assessment Last Done: 12/18/24 16:49
ED- Pulmonary Assessment Last Done: 12/18/24 16:49
Discharge Date and Time
Print Language: CROATIAN
[2024-12-18 16:47] VITALS: BP 133/80
[2024-12-18 16:48] VITALS: BMI 37.3
[2024-12-18 17:00] VITALS: BP 139/85
--- NOTE | 2024-12-18 17:01 | HPS.HSE ---
Addendum entered and electronically signed by Jamaica Frausto MD 12/18/24 18:23:
This is an addendum to H&P written by Poly Coughlin on 12/18/2024. �Patient seen and examined independently with FLOW MANAGER.
54-year-old male past medical history of obesity, hypertension, hyperlipidemia, prior vestibular neuritis presenting with dyspnea on exertion for few weeks with outpatient CT scan showing pulmonary embolism. �No chest pain or cough. �He saw his
component lab tech Dr. Azul and had echocardiogram last week. �Last month he had a flight to [place] but did walk during the flight. �No prior history of DVT/PE no family history of blood clots. �No weight loss or fatigue or signs of malignancy.
Vital signs unremarkable.
Labs unremarkable. �Cardiac BNP of 323. �Troponin 0.025. �EKG shows normal sinus rhythm, nonspecific T wave abnormality
CT PE showed extensive bilateral pulmonary artery embolic disease. �No evidence of right heart strain. �Mild cardiomegaly.
Patient with extensive bilateral pulmonary embolic disease. �Could be provoked from flight to [place], but seems unusual this would be the cause. �Heparin drip started. �Check venous ultrasound of lower extremities. �Trend troponins. �Does not need
repeat echocardiogram.� Pulmonary consulted. Outpatient follow-up with hematology for hypercoagulable workup.
Original Note:
Family Physician
-
Family Physician:
Chief Complaint
-
sob
History of Present Illness
54 year old with PMH for HTN, HLD presented to us with sob worse with exertion for past few weeks. he flew to [place] on November,since then he is feeling the symptoms of sob. he did walk during the flight and took aspirin prior to
flying. denied chest pain. denied fever, chills, cough, congestion. denied RAY,dizzy or syncope. denied abdominal pain,nv,d. denied dysuria or hematuria. patient had an stress test and echo last week which was normal.
due to the persistent symptoms, he got an CT with the impression of PE.
initiated on heparin drip. admitting for further management.
Medical History
Past Medical History
Past Medical History: Reports Other
Additional Past Medical History:
Hypercholesterolemia, coronary artery disease, mitral regurgitation, hypertension, hyperlipidemia
Past Surgical History: Reports Other
Additional Past Surgical History:
Tonsillectomy
Social History
Tobacco: Non-smoker
Alcohol: None
Drug: None
Personal:
Living: With Family
Employment: Employed
Family History
Family History: Not pertinent
Allergies / Home Medications
Allergies reflects when Allergies were last updated in [email or web address].
Home Medications with original date entered in [email or web address]
Allergy/Medication List:
Allergies
Allergy/AdvReac Type Severity Reaction Status Date / Time
atorvastatin Allergy achiness Verified 12/18/24 15:09
Home Medications
pravastatin 20 mg tablet 20 mg PO DAILY High Cholesterol 08/17/24
valsartan 320 mg-hydrochlorothiazide 12.5 mg tablet 1 tab PO DAILY Blood Pressure 08/17/24
meclizine 25 mg tablet 25 mg PO Q8HPRN PRN vertigo #30 tabs 08/19/24
aspirin 81 mg tablet,delayed release 162 mg PO DAILY 12/18/24
cyanocobalamin (vitamin B-12) 1,000 mcg tablet 1,000 mcg PO DAILY 12/18/24
fluticasone propionate 50 mcg/actuation nasal spray,suspension 1 spray intranasal BIDPRN PRN allergies 12/18/24
Review of Systems
-
Constitutional: Reports No Symptoms
EENT: Reports No Symptoms
Respiratory: Reports Trouble Breathing
Cardiac: Reports No Symptoms
Abdomen/GI: Reports No Symptoms
: Reports No Symptoms
Musculoskeletal: Reports No Symptoms
Skin: Reports No Symptoms
Neurological: Reports No Symptoms
Endocrine: Reports No Symptoms
Hematologic/Lymphatic: Reports No Symptoms
Psych: Reports No Symptoms
Physical Exam
Vital Signs
Vital Signs
Temp Pulse Resp BP Pulse Ox
98.4 F 63 18 133/80 93
12/18/24 15:09 12/18/24 16:47 12/18/24 16:47 12/18/24 16:47 12/18/24 16:49
Physical Exam
General: Well Developed, Well Nourished and No Apparent Distress
HEENT: NormoCephalic, Moist mucous membranes and Atraumatic
Respiratory: Clear
Cardiac: S1/S2 and Regular Rhythm; No Murmur or Rub
GI: Soft, Non Tender, Non Distended and Normal Bowel Sounds; No Organomegaly
Rectal: Deferred by Provider
Musculoskeletal: No Clubbing, No Cyanosis and No Edema
Skin: No Rash
Neuro: AO x 3 and Nonfocal/grossly intact
Psych: Calm
Laboratory Results
-
12/18/24 15:15
12/18/24 15:15
Laboratory Results
APTT 22.9 Sec (23.4-35.0) L 12/18/24 15:15
Total Bilirubin Cancelled 12/18/24 15:15
AST Cancelled 12/18/24 15:15
ALT Cancelled 12/18/24 15:15
Alkaline Phosphatase Cancelled 12/18/24 15:15
Troponin I 0.025 ng/ml 12/18/24 15:15
Data Reviewed
-
CT Scan: Report Reviewed by me
Lab Data: Labs Reviewed by me
Impression/Plan
-
#concerned for Provoked bilateral PE
- Heparin drip continued
-chest CTA with EXTENSIVE BILATERAL PULMONARY ARTERIAL EMBOLIC DISEASE. No CTA evidence for right heart strain.
-trend trop
-obtain duplex
-outpatient follow up with hematology
# Anemia of chronic disease
- Hemoglobin stable 11.9, no active bleed
- Continue to monitor
#Hypertension
-valsartan-hctz continued
#Hyperlipidemia
-Continue pravastatin
#DVT prophylaxis
-heparin drip
#CODE status
-full code
[2024-12-18] MEDS: HEPARIN 10000 UNITS IV ×2 (17:11→23:47)
[2024-12-18] MEDS: HEPARIN 25000 UNITS/250 ML IV (17:12)
[2024-12-18 17:15] LABS: INR 1.05; PT 14.0 Sec (11.4-14.6)
[2024-12-18 18:00] VITALS: BP 141/82
[2024-12-18 18:37] VITALS: BP 157/91
[2024-12-18 22:40] VITALS: BP 137/92
[2024-12-18 23:33] LABS: APTT 58.2 Sec (23.4-35.0)
[2024-12-18 23:42] LABS: Troponin I 0.022 ng/ml
[2024-12-19 03:07] VITALS: BP 147/88
[2024-12-19] MEDS: HEPARIN 25000 UNITS/250 ML IV ×2 (04:40→16:10)
[2024-12-19 05:59] LABS: APTT 118.4 Sec (23.4-35.0)
[2024-12-19 06:14] LABS: Troponin I 0.016 ng/ml
[2024-12-19 07:24] VITALS: BP 147/89
[2024-12-19] MEDS: DIOVAN 320 MG PO (07:51)
[2024-12-19] MEDS: VITAMIN B-12 1000 MCG PO (07:52)
[2024-12-19] MEDS: PRAVACHOL 20 MG PO (07:52)
[2024-12-19] MEDS: ORETIC 12.5 MG PO (07:52)
[2024-12-19] MEDS: ASPIR LOW (ENTERIC COATED) 162 MG PO (07:52)
--- NOTE | 2024-12-19 09:29 | CON.PUL ---
Consultation
Consultation Request
Date/Time Consultation Requested: 12/19/24
Date/Time Consultation Performed: 12/19/24
Performing Provider: Tatianna
Reason for Consultation: PE
Medical History
-
History of Present Illness:
Patient is a 54-year-old male with history of hypertension, hyperlipidemia, vestibular neuritis presenting with shortness of breath on exertion for the past few weeks. He had an outpatient CT scan demonstrating bilateral pulmonary embolism. He
does endorse a recent flight to [place] last month, but did not remain sedentary for the duration of the flight. He has no prior personal history of DVT/PE and no family history. Labs are unremarkable, no evidence of right heart strain. He is
admitted for IV heparin treatment.
Past Medical History
Past Medical History: Other (see list below)
Social History
Tobacco: Non-smoker
Alcohol: None
Drug: None
Family History
Family History: Reviewed & Not Pertinent
Allergies / Home Medications
Allergies
Allergy/AdvReac Type Severity Reaction Status Date / Time
atorvastatin Allergy achiness Verified 12/18/24 15:09
Home Medications
�Medication �Instructions �Recorded �Confirmed �Last Taken �Type
pravastatin 20 mg tablet 20 mg PO DAILY High Cholesterol 08/17/24 12/18/24 12/18/24 History
valsartan 320 1 tab PO DAILY Blood Pressure 08/17/24 12/18/24 12/18/24 History
mg-hydrochlorothiazide 12.5 mg
tablet
meclizine 25 mg tablet 25 mg PO Q8HPRN PRN vertigo #30 08/19/24 12/18/24 Unknown Rx
tabs
aspirin 81 mg tablet,delayed 162 mg PO DAILY Blood Clot 12/18/24 12/18/24 12/18/24 History
release Prevention/Tx
cyanocobalamin (vitamin B-12) 1,000 mcg PO DAILY Supplement 12/18/24 12/18/24 12/18/24 History
1,000 mcg tablet
fluticasone propionate 50 1 spray intranasal BIDPRN PRN 12/18/24 12/18/24 12/18/24 History
mcg/actuation nasal allergies
spray,suspension
Review of Systems
-
History Source: Patient
All other systems: Negative unless noted
Vitals / Labs / Diagnostic Testing
Vital Signs
Temp Pulse Resp BP Pulse Ox
98.6 F 58 18 147/89 94
12/19/24 07:24 12/19/24 07:51 12/19/24 07:24 12/19/24 07:51 12/19/24 07:24
Lab Data
12/18/24 15:15
12/18/24 15:15
Laboratory Results
12/18/24 12/18/24 12/18/24
15:15 23:02 23:15
PT 14.0
INR 1.05
APTT 22.9 L 58.2 H Cancelled
12/19/24
05:25
PT
INR
APTT 118.4 H
Diagnostic Testing:
Physical Exam
-
HEENT: Normocephalic, Anicteric and Moist Mucous Membranes
Cardiovascular: S1/S2 and Regular Rhythm
Respiratory: Clear and Non-Labored Respirations
GI: Soft, Non Distended and Non Tender
Neurology: Awake, Alert, Oriented and No Motor Deficits
Skin: Warm, Dry and Good Color
General: Comfortable and Other (NAD)
Assessment
-
Patient is a 54-year-old male with history of hypertension, hyperlipidemia, vestibular neuritis presenting with shortness of breath on exertion for the past few weeks. He had an outpatient CT scan demonstrating bilateral pulmonary embolism. He
does endorse a recent flight to [place] last month, but did not remain sedentary for the duration of the flight. He has no prior personal history of DVT/PE and no family history. Labs are unremarkable, no evidence of right heart strain. He is
admitted for IV heparin treatment. We are consulted for evaluation.
Acute bilateral PE--possible unprovoked/no leading cause thus far
LLE DVT
Shortness of breath with exertion
Conditions present prior to admission
Hypercholesterolemia
CAD
Mitral regurgitation
Hypertension
Obesity
Vestibular neuritis w/ vertigo
Plan
No oxygen was needed on admission, currently saturating >90% on RA
Prior history of lung disease is NOT noted --no prior history of VTE/family history
History suggests possible unprovoked cause
CXR/CT obtained indicating BL PE, LLE DVT- I reviewed with patient
Will likely need repeat imaging as OP which we can arrange
No RHS
On IV heparin but can transition to OAC when CM able to confirm coverage
Discussed possible need for heme OP consult for hypercoag w/u as well
Prior ECHO results are reviewed indicating stable function
Has history of MR, mild-mod
Follows with Dr Azul
Has noted some recent weight gain with snoring
Weight loss measures recommended
Risk factors assessed for underlying sleep disordered breathing also noted, recommend outpatient PSG/sleep evaluation
Will need outpatient pulmonary evaluation in our office for PFTs and 6MWT
Reviewed with patient, we will arrange
If transitioned in next 24 hours, can proceed with d/c planning
Discussed with team
We will follow
Diagnostic Data
Chest X-Ray: 12/11/24- Clear lungs.
CT Scan: 12/18/24- 1. EXTENSIVE BILATERAL PULMONARY ARTERIAL EMBOLIC DISEASE.
2. No CTA evidence for right heart strain.
3. Mild cardiomegaly.
4. Mild calcific atherosclerotic plaque in the coronary arteries.
5. Chronic superior endplate compression fracture of T12.
There is severely decreased attenuation throughout the liver suggesting severe diffuse hepatic steatosis. There are moderate number of bilateral renal cysts measuring up to 3.2 cm in size in the posterior cortex of the upper pole of the right
kidney. There is no upper abdominal ascites or pneumoperitoneum.
US legs 12/18/24: Nonocclusive thrombus involving the left peroneal and posterior tibial veins. No evidence for deep venous thrombosis involving the right lower extremity.
Echo: 12/13/24- 1. Ejection fraction is 60-65% by visual assessment. No regional wall motion abnormalities.
2. Right ventricular size and systolic function are within normal limits.
3. Mild to moderate mitral valve regurgitation. Mitral regurgitation jet is eccentrically directed. Mitral regurgitation jet is eccentrically directed.
4. Compared to a prior transthoracic echocardiogram study from 08/18/24, no significant changes are seen.
PFT's:
Reports and relevant images were personally reviewed.
Total time spent on this consultation __55__ minutes which includes review of history, physical exam, medications, laboratory data, personal review of imaging, extensive review of outpatient records, discussion with care team and respiratory therapy.
[2024-12-19 11:56] VITALS: BP 149/83
--- NOTE | 2024-12-19 12:22 | W.PN.HOSP.TC ---
Today's Communication/Plan
-
Transition to oral anticoagulation tonight
Assessment / Plan
Assessment / Plan
Impression
Bilateral pulmonary embolism.
Left lower extremity DVT.
Hepatic steatosis by imaging.
Right renal cyst on CT scan.
Mild anemia, chronic
CT chest
1. EXTENSIVE BILATERAL PULMONARY ARTERIAL EMBOLIC DISEASE.
2. No CTA evidence for right heart strain.
3. Mild cardiomegaly.
4. Mild calcific atherosclerotic plaque in the coronary arteries.
5. Chronic superior endplate compression fracture of T12.
Lower extremity Doppler
Nonocclusive thrombus involving the left peroneal and posterior tibial veins.
Echo 12/13
1. Ejection fraction is 60-65% by visual assessment. No regional wall motion abnormalities.
2. Right ventricular size and systolic function are within normal limits.
3. Mild to moderate mitral valve regurgitation. Mitral regurgitation jet is eccentrically directed. Mitral regurgitation jet is eccentrically directed.
4. Compared to a prior transthoracic echocardiogram study from 08/18/24, no significant changes are seen.
Other conditions
Essential hypertension.
Dyslipidemia.
Obesity BMI 37.3
Plan
Extensive bilateral pulmonary embolism.
Presentation with exertional dyspnea
Left lower extremity DVT
Risk factor: Obesity, recent air travel.
Patient reports cancer screening including colonoscopy up to date
Stable respiratory status and hemodynamically stable upon presentation.
No evidence for RV strain.
Recent echo as above
Initiated on IV heparin
Transition to Eliquis today.
Home O2 assessment prior to discharge
Outpatient pulmonology follow-up
Outpatient heme-onc follow-up to complete workup for hypercoagulable state
Mild microcytic anemia.
Patient reports B12 deficiency initiated on B12 supplementation.
Occasional hemorrhoidal bleeding
Colonoscopy up-to-date
Update iron stores
Update TSH
Follow hemoglobin
Right renal cyst.
Positive family history of RCC
Will need urology follow-up
Essential hypertension.
Continue valsartan and hydrochlorothiazide
Dyslipidemia. Continue statin
Anticipated Discharge: 24 - 48 hours
Subjective/Interval History
-
Date of Service: December 19, 2024
Objective Data
-
Labs:
Laboratory Results
12/19/24 12/19/24
05: 11:51
APTT 118.4 H Pending
Vital Signs:
Vital Signs
Temp Pulse Resp BP Pulse Ox
98.7 F 61 18 149/83 98
12/19/24 11:56 12/19/24 11:56 12/19/24 11:56 12/19/24 11:56 12/19/24 11:56
I&O
12/18/24 12/19/24 12/20/24
06:59 06:59 06:59
Intake Total 730 / 730
Balance 730 / 730
Physical Exam
-
General: Well Developed and No Apparent Distress
HEENT: Normocephalic, Atraumatic and Moist Mucous Membranes
Respiratory: Clear to Auscultation
Cardiac: Regular Rhythm and S1/S2; Negative Murmur, Rub or Gallop
GI: Soft, Nontender, Nondistended and Normal Bowel Sounds; Negative Organomegaly
Rectal: Deferred by Provider
Musculoskeletal: No Clubbing, No Cyanosis and No Edema
Skin: Negative Rash
Neuro: Nonfocal/Grossly Intact
[2024-12-19 13:09] LABS: APTT 71.0 Sec (23.4-35.0)
[2024-12-19] MEDS: HEPARIN 5000 UNITS IV (13:20)
--- NOTE | 2024-12-19 14:21 | CM ---
CM following re: discharge planning.
Reviewed pt's chart, met with pt and pt's spouse at bedside.
Pt is a 54 year old male, admitted with primary dx of PE.
Pt reports he lives with spouse 2SH, 1 step to enter, has 2 supportive children. Pt described himself as independent in all areas [employer], drives, works.
PCP: Rivera Allison
Pharmacy: [facility]
D/C plan: home with outpatient barley steeper follows up. Spouse to transport at discharge.
CM will follow with discharge plan updates as needed.
[2024-12-19 14:41] LABS: Iron 99 ug/dl (49-181)
[2024-12-19 14:51] LABS: Total Iron Binding Capacity 325 ug/dl (261-462)
[2024-12-19 15:17] VITALS: BP 130/74
[2024-12-19 15:51] LABS: TSH 4.90 uIU/ml (0.47-4.68)
[2024-12-19 15:55] LABS: Ferritin 93.7 ng/ml (17.9-464.0)
[2024-12-19 19:16] VITALS: BP 144/82
[2024-12-19] MEDS: ELIQUIS 10 MG PO (19:41)
[2024-12-19 20:09] LABS: APTT 84.8 Sec (23.4-35.0)
[2024-12-19 23:18] VITALS: BP 138/78
[2024-12-20 03:28] VITALS: BP 137/78
[2024-12-20 06:00] VITALS: BMI 36.3
[2024-12-20 06:23] LABS: Hematocrit 34.5 % (39.0-52.0); Hemoglobin 11.3 g/dL (13.0-18.0); Mean Corp Hgb Conc. 32.8 g/dL (33.0-37.0); Mean Corpuscular Volume 95.8 fL (80.0-94.0); Nucleated Red Blood Cells % 0 % (-); Platelet Count 272 10^3/uL (130-400); Red Cell Dist. Width 14.4 % (11.5-14.5)
[2024-12-20 07:05] VITALS: BP 157/87
[2024-12-20] MEDS: DIOVAN 320 MG PO (08:07)
[2024-12-20] MEDS: ORETIC 12.5 MG PO (08:07)
[2024-12-20] MEDS: ELIQUIS 10 MG PO (08:07)
[2024-12-20] MEDS: PRAVACHOL 20 MG PO (08:07)
[2024-12-20] MEDS: VITAMIN B-12 1000 MCG PO (08:10)
--- NOTE | 2024-12-20 09:32 | W.PN.PUL3 ---
Today's Communication / Plan
-
Doing well, stable on RA
Transitioned to Eliquis, tolerating and off IV hep
We reviewed OP FU
Discharge planning per team, ok from our perspective
Assessment
-
Patient is a 54-year-old male with history of hypertension, hyperlipidemia, vestibular neuritis presenting with shortness of breath on exertion for the past few weeks. He had an outpatient CT scan demonstrating bilateral pulmonary embolism. He
does endorse a recent flight to [place] last month, but did not remain sedentary for the duration of the flight. He has no prior personal history of DVT/PE and no family history. Labs are unremarkable, no evidence of right heart strain. He is
admitted for IV heparin treatment. We are consulted for evaluation.
Acute bilateral PE--possible unprovoked/no leading cause thus far
LLE DVT
Shortness of breath with exertion
Conditions present prior to admission
Hypercholesterolemia
CAD
Mitral regurgitation
Hypertension
Obesity
Vestibular neuritis w/ vertigo
Plan
No oxygen was needed on admission, currently saturating >90% on RA
Prior history of lung disease is NOT noted --no prior history of VTE/family history
History suggests possible unprovoked cause
CXR/CT obtained indicating BL PE, LLE DVT- I reviewed with patient
Will likely need repeat imaging as OP which we can arrange
No RHS
On IV heparin but can transition to OAC when CM able to confirm coverage--transitioned to Eliquis and tolerating well
Discussed possible need for heme OP consult for hypercoag w/u as well
Prior ECHO results are reviewed indicating stable function
Has history of MR, mild-mod
Follows with Dr Azul
Has noted some recent weight gain with snoring
Weight loss measures recommended
Risk factors assessed for underlying sleep disordered breathing also noted, recommend outpatient PSG/sleep evaluation
Will need outpatient pulmonary evaluation in our office for PFTs and 6MWT
Reviewed with patient, we will arrange
Discharge planning per team
Diagnostic Data
Chest X-Ray: 12/11/24- Clear lungs.
CT Scan: 12/18/24- 1. EXTENSIVE BILATERAL PULMONARY ARTERIAL EMBOLIC DISEASE.
2. No CTA evidence for right heart strain.
3. Mild cardiomegaly.
4. Mild calcific atherosclerotic plaque in the coronary arteries.
5. Chronic superior endplate compression fracture of T12.
There is severely decreased attenuation throughout the liver suggesting severe diffuse hepatic steatosis. There are moderate number of bilateral renal cysts measuring up to 3.2 cm in size in the posterior cortex of the upper pole of the right
kidney. There is no upper abdominal ascites or pneumoperitoneum.
US legs 12/18/24: Nonocclusive thrombus involving the left peroneal and posterior tibial veins. No evidence for deep venous thrombosis involving the right lower extremity.
Echo: 12/13/24- 1. Ejection fraction is 60-65% by visual assessment. No regional wall motion abnormalities.
2. Right ventricular size and systolic function are within normal limits.
3. Mild to moderate mitral valve regurgitation. Mitral regurgitation jet is eccentrically directed. Mitral regurgitation jet is eccentrically directed.
4. Compared to a prior transthoracic echocardiogram study from 08/18/24, no significant changes are seen.
PFT's:
Reports and relevant images were personally reviewed.
Total time spent on this consultation __40__ minutes which includes review of history, physical exam, medications, laboratory data, personal review of imaging, extensive review of outpatient records, discussion with care team and respiratory therapy.
Subjective Data
-
Date of Service:
Date of Service: December 20, 2024
Chief Complaint: Pulmonary Follow Up
Subjective:
Doing well this AM, sitting in chair
Transitioned to Eliquis, off IV hep--tolerated well
No new complaints, ready to go home
Objective Data
Data Reviewed
Vital Signs / I&O / Oxygen:
Vital Signs
Temp Pulse Resp BP Pulse Ox
98.3 F 56 18 157/87 96
12/20/24 07:05 12/20/24 07:05 12/20/24 07:05 12/20/24 07:05 12/20/24 07:05
Intake and Output
12/19/24 12/20/24 12/21/24
06:59 06:59 06:59
Intake Total 730 / 730 1779
Balance 730 / 730 1779
SaO2 96
Physical Exam
General: Comfortable and Other (NAD)
HEENT: Normocephalic, Anicteric and Moist Mucous Membranes
Cardiovascular: S1-S2 and Regular Rhythm
Respiratory: Clear and Non-Labored Respirations
GI: Soft, Non Distended and Non Tender
Neurology: Awake, Alert, Oriented and No Motor Deficits
Skin: Warm, Dry and Good Color
Labs/Micro/Reports
Lab Data
12/20/24 05:23
12/18/24 15:15
Laboratory Results
12/19/24 12/19/24
11:51 19:51
APTT 71.0 H 84.8 H
[2024-12-20 11:22] VITALS: BP 132/80
--- NOTE | 2024-12-20 12:51 | CM ---
CM following rte: discharge planning.
Reviewed pt's chart, met with pt and pt's spouse at bedside.
Discharge order noted. Both pt and his spouse are aware, expressed their agreement. Per respiratory therapist, pt does not need home oxygen.
Per [facility] pharmacist, Eliquis 5mg BID for 30 days supply - $115.00 co-pay. Pt stated is is affordable. Free 30 days coupon with $10.00 monthly coupon given to the pt.
D/C plan: home with no after care VN needs. Pt will follow up with outpatient director targeted marketing. Spouse to transport.
--- NOTE | 2024-12-20 13:06 | W.DS.TRANS ---
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
-
Discharge Instructions:
Discharge Diagnosis/Procedures Acute pulmonary embolism
DVT
Diet Regular
Blood Work repeat TSH in 3-4 weeks
Instructions:
Stand-Alone Forms:
Changes to Home Medications: Yes
Discharge Medications:
DC Medications w/original date entered in [employer]
pravastatin 20 mg tablet 20 mg PO DAILY High Cholesterol 08/17/24
valsartan 320 mg-hydrochlorothiazide 12.5 mg tablet 1 tab PO DAILY Blood Pressure 08/17/24
meclizine 25 mg tablet 25 mg PO Q8HPRN PRN vertigo #30 tabs 08/19/24
cyanocobalamin (vitamin B-12) 1,000 mcg tablet 1,000 mcg PO DAILY Supplement 12/18/24
fluticasone propionate 50 mcg/actuation nasal spray,suspension 1 spray intranasal BIDPRN PRN allergies 12/18/24
apixaban 5 mg tablet (Eliquis) 5 mg PO BID #30 tabs 12/20/24
Home Medication Changes
Eliquis initiated
Aspirin stopped
Pending Results: No
== END 2024-12-20 13:39 | disposition home or self-care (01) | DRG 176 ==
LOC: 2 NORTH 17:42
PROVIDERS: Registered Nurse; Student in an Organized Health Care Education/Training Program; ADMITTING PHYSICIAN Hospitalist; ATTENDING PHYSICIAN Internal Medicine; EMERGENCY PHYSICIAN Emergency Medicine; FAMILY PHYSICIAN Family Medicine; OTHER PHYSICIAN Internal Medicine
DX: I26.99 Other pulmonary embolism without acute cor pulmonale (principal); I82.452 Acute embolism and thrombosis of left peroneal vein; I82.442 Acute embolism and thrombosis of left tibial vein; I10 Essential (primary) hypertension; E66.9 Obesity, unspecified; Z68.37 Body mass index [BMI] 37.0-37.9, adult; E03.8 Other specified hypothyroidism; D50.9 Iron deficiency anemia, unspecified; Z79.82 Long term (current) use of aspirin; Z86.711 Personal history of pulmonary embolism
CPT/HCPCS: 71275; 80048; 82728; 83540; 83550; 83880; 84439; 84443; 84484; 85025; 85610; 85730; 93005; 93970; 94761; 96374; 99291; Q9967